=== PATIENT | male | born 1990 | race African-American/Black ===

== ENCOUNTER 2025-02-09 14:12 | Emergency (ER) | payer OTHER, BC, SELFPAY ==
[2025-02-09 14:15] VITALS: BP 122/82; PULSE 80; RESP 16; TEMP 37.2; O2SAT 100; BMI 20.9
--- NOTE | 2025-02-09 14:27 | ED.RN ---
NO ONE ON-CALL FOR CORPORATE CARE. PT INSTRUCTED TO F/U WITH CORPORATE CARE IN THE AM. DSICUSSED REQUIREMENT FOR [facility]WC CLAIM. PT VERBALIZES UNDERSTANDING
--- NOTE | 2025-02-09 16:16 | ED.VIS.BACK ---
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 He denies radiation of the pain and paresthesias. He denies bowel/bladder incontinence, saddle paresthesia/anesthesia, urinary retention, and urinary symptoms. He has had no fevers or chills. PFSH <SHEILA Milian - Last Filed: 02/09/25 17:29> PFSH Home Medications ?Medication ?Instructions ?Recorded ?Last Taken ?Type acetaminophen 325 mg tablet 650 mg (2 x 325 mg) PO Q6H PRN PRN 05/02/17 Unknown Rx (Tylenol) Mild Pain (scale 0-3)/T>100.7 cephalexin 500 mg capsule 500 mg PO Q6 ##56 05/02/17 Unknown Rx oxycodone 5 mg tablet 10 mg (2 x 5 mg) PO Q4H PRN PRN 05/02/17 Unknown Rx Severe Pain (6-10/) #18 tabs hydrocodone-acetaminophen 5-325mg 1 tab PO Q6H PRN PRN Pain 2 days 02/09/25 Unknown Rx 5mg-325mg #7 TABLETS metaxalone 800 mg tablet 800 mg PO TID PRN muscle pain 7 02/09/25 Unknown Rx days #21 tabs naproxen 500 mg tablet 500 mg PO BID #14 tabs 02/09/25 Unknown Rx Allergy/AdvReac Type Severity Reaction Status Date / Time No Known Allergies Allergy Verified 02/09/25 14:14 Social History Smoking Status: Current every day smoker ROS <SHEILA Milian - Last Filed: 02/09/25 17:29> ROS ED Constitutional Constitutional ED: Denies chills or fever(s) Cardiovascular Cardiovascular: Denies chest pain Respiratory/Chest Respiratory/Chest: Denies dyspnea Gastrointestinal Gastrointestinal: Denies abdominal pain, nausea or vomiting Genitourinary Genitourinary ED: Denies dysuria, hematuria or urinary urgency Musculoskeletal Musculoskeletal: Reports back pain Integumentary Denies rash Neurologic Neurologic: Denies paresthesias or weakness EXAM <SHEILA Milian - Last Filed: 02/09/25 17:29> Physical Exam Const Vital Signs: 02/09/25 14:15 Temperature 98.9 F Temperature Source Oral Pulse Rate 80 Respiratory Rate 16 Blood Pressure 122/82 H Blood Pressure Mean 95 Pulse Ox 100 Oxygen Delivery Method Room Air Positive well nourished, well developed and no apparent distress General Appearance ED: well developed HEENT Reports normocephalic and head/scalp atraumatic Mouth ED: Yes moist mucous membranes normal Eyes PERRL and EOMs intact bilaterally Neck full ROM and supple Chest Wall inspection of chest normal Resp normal respiratory effort and clear to auscultation bilaterally Cardio regular rate and regular rhythm GI soft to palpation, non-tender, non-distended and no masses Back/Spine normal ROM and normal to inspection Extremity normal to inspection and full ROM Neuro oriented x3, CN's II-XII intact bilaterally, moves all extremities, no focal motor deficits and no sensory deficits noted Sensorium / Orientation: awake and alert Motor Exam: strength 5/5 throughout Deep Tendon Reflexes: Rt Patellar (L4): 2+ and Lt Patellar (L4): 2+ Deep Tendon Reflexes Back: Rt Patellar (L4): 2+ and Lt Patellar (L4): 2+ Psych mental status grossly normal and thought process normal Skin no rashes or lesions noted and no wounds <Dr. Brittney Pruett DO - Last Filed: 02/09/25 16:21> Physical Exam Const Vital Signs: 02/09/25 14:15 Temperature 98.9 F Temperature Source Oral Pulse Rate 80 Respiratory Rate 16 Blood Pressure 122/82 H Blood Pressure Mean 95 Pulse Ox 100 Oxygen Delivery Method Room Air [facility] <SHEILA Milian - Last Filed: 02/09/25 17:29> [facility] Narrative Medical decision making narrative: Patient presenting today with low back pain that started this afternoon after he bent over to pick something up and felt a pop in his low back. No radicular symptoms. He has no symptoms of cauda equina syndrome, low suspicion for spinal abscess. He did not have any direct injury to his back, I do not feel that imaging is indicated at this time. I will given prescriptions for muscle relaxers and anti-inflammatories as well as a few [place] for breakthrough pain. [facility], can also follow-up with his PCP. Work restrictions were given. He will be discharged home in stable condition. I have personally performed a face to face assessment of the patient and have reviewed the ARIK Note. I performed a substantive portion of the visit including all aspects of the following. My pride findings include: History is [patient presents to the emergency department complaint of back injury while at work. Patient states that he was lifting some parts weighing about 20 pounds he just thinks the angle in which he did it caused an injury. Patient states that he immediately felt a pop in his low back and has now discomfort with movement. Denies any pain rating down his legs. He denies numbness or tingling. Typically does not have back pain issues.] Exam is [HERILEY-PERRLA, EOMI. Cranial nerves II through XII grossly intact. TMs clear. Mucous membranes moist. No adenopathy. Cardiovascular-regular rate and rhythm without murmur or ectopy Lungs-clear to auscultation, chest wall stable without crepitus or subcu emphysema Abdomen-normoactive bowel sounds, soft, nontender, no rebound or rigidity, no peritoneal signs. Back-no tenderness over the thoracic or lumbar spine. No significant tenderness over the para musculature bilaterally. He has negative straight leg raises. Deep tendon reflexes plus 2 out of 4 bilaterally at the patella and Achilles. He has normal 5 extension bilaterally. He has normal sensation to light touch bilaterally. Extremities-intact ?4, normal range of motion, normal pulses, atraumatic] Medical Decison Making [patient with lifting injury while at work. Clinically looks well. No red flag symptoms of cauda equina. I do not think he needs any imaging. Will treat with muscle relaxer as well as anti-inflammatory and some for pain. Will give work restrictions. Will refer to corporate care for follow-up.] Other additions or changes: [None] <Dr. Brittney Pruett, DO - Last Filed: 02/09/25 16:21> [facility] Narrative Medical decision making narrative: I have personally performed a face to face assessment of the patient and have reviewed the ARIK Note. I performed a substantive portion of the visit including all aspects of the following. My pride findings include: History is [patient presents to the emergency department complaint of back injury while at work. Patient states that he was lifting some parts weighing about 20 pounds he just thinks the angle in which he did it caused an injury. Patient states that he immediately felt a pop in his low back and has now discomfort with movement. Denies any pain rating down his legs. He denies numbness or tingling. Typically does not have back pain issues.] Exam is [HEENT-PERRLA, EOMI. Cranial nerves II through XII grossly intact. TMs clear. Mucous membranes moist. No adenopathy. Cardiovascular-regular rate and rhythm without murmur or ectopy Lungs-clear to auscultation, chest wall stable without crepitus or subcu emphysema Abdomen-normoactive bowel sounds, soft, nontender, no rebound or rigidity, no peritoneal signs. Back-no tenderness over the thoracic or lumbar spine. No significant tenderness over the para musculature bilaterally. He has negative straight leg raises. Deep tendon reflexes plus 2 out of 4 bilaterally at the patella and Achilles. He has normal 5 extension bilaterally. He has normal sensation to light touch bilaterally. Extremities-intact ?4, normal range of motion, normal pulses, atraumatic] Medical Decison Making [patient with lifting injury while at work. Clinically looks well. No red flag symptoms of cauda equina. I do not think he needs any imaging. Will treat with muscle relaxer as well as anti-inflammatory and some for pain. Will give work restrictions. Will refer to corporate care for follow-up.] Other additions or changes: [None] Discharge Plan Triage Chief Complaint: Back ED Midlevel Provider: Emily Burris ED Provider: Brittney Pruett Dx/Rx/DC Orders Clinical Impression: Lumbar strain Instructions: ED Back Sprain/Strain Prescriptions: New naproxen 500 mg tablet 500 mg PO BID Qty: 14 0RF metaxalone 800 mg tablet 800 mg PO TID PRN (Reason: muscle pain) 7 Days Qty: 21 0RF hydrocodone-acetaminophen 5-325 mg tablet 1 tab PO Q6H PRN PRN (Reason: Pain) 2 Days Qty: 7 0RF No Action acetaminophen [Tylenol] 325 MG tablet 650 mg PO Q6H PRN PRN (Reason: Mild Pain (scale 0-3)/T>100.7) 0RF oxycodone 5 MG tablet 10 mg PO Q4H PRN PRN (Reason: Severe Pain (-05/09)) Qty: 18 0RF cephalexin 500 MG capsule 500 mg PO Q6 Qty: 56 0RF Stand Alone Forms: Work Status Form Primary Care Provider: Alex Redd Referrals: [facility] [Provider Group] - 5-7 Days Alex Benavidez MD [Non-Staff] - 5-7 Days Activity Restrictions/Additional Instructions: Follow-up with [facility] PCP in the [facility] and return for any worsening symptoms. Print Language: Welsh Disposition Disposition: Home, Self Care
--- OUTSIDE RECORDS SUMMARY | 2025-02-09 16:55 | XMS RPT_ITS | CCD ---
Author Organization [facility] CliniSymt Care Team Providers Care Nutrient Management Specialist Name Role Phone José Antonio Cash Unavailable Unavailable Benavidez, Alex Unavailable Unavailable Benavidez, Alex Unavailable Unavailable Andreina, Stefan Unavailable Unavailable Imamura, Yoichi Unavailable Unavailable Catrina, Ja Unavailable Unavailable Asia, Obdulio Unavailable Unavailable Problems Active Problems Problem Classification Problem Date Documented Da te Episodic/Chronic Substance-related disorders (1 source) Nicotine dependence, unspecified, uncomplicated; Translations: [NICOTINE DEPENDENCE, UNSPECIFIED, UNCOMPLICATED] Onset: 05-03-2017 Chronic Past or Other Problems Problem Classification Problem Date Documented Date Episodic/Chronic Bacterial infection (1 source) Other streptococcus as the cause of diseases classified elsewhere; Translations: [OTH STREPTOCOCCUS THE CAUSE OF DISEASES CLASSD ELSWHR] Onset: 05-03-2017 Episodic Lymphadenitis (1 source) Nonspecific lymphadenitis, unspecified; Translations: [NONSPECIFIC LYMPHADENITIS, UNSPECIFIED] Onset: 05-02-2017 Episodic Other connective tissue disease (1 source) Infective myositis, other site; Translations: [INFECTIVE MYOSITIS, OTHER SITE] Onset: 05-03-2017 Episodic Skin and subcutaneous tissue infections (1 source) Cellulitis of neck; Translations: [CELLULITIS OF NECK] Onset: 05-03-2017 Episodic Results Test Name Value Interpretation Reference Range Facility Fungus Arielleon 05-17-2017 FUNST Comments: LEFT NECK ABSCESS CANCELLATION OF AFB CULTURE AND SMEAR CALLED TO TAL COOK 04/29/17 15:[address] TESTING PERFORMED AT [facility]. ORIGINAL REPORT ON FILE IN LAB CONTAINS ADDITIONAL TEST SITE INFORMATION. _ Fungus Stain No yeast or mold observed. Normal [facility] Comment on above: Performed By: #### L 100.0500 ####[facility] [address] [place], [address] Culture, Blood (WB)on 2016 CUB Has pt arrived? Y BC No growth in 5 days. Normal [facility] Comment on above: Performed By: #### L 100.0500 ####[facility] [address] [place], [address] Culture, Deep Woundon 2016 CUDW This specimen has be en REJECTED due to Laboratory criteria: Wrong Tube/Container. UNABLE TO PERFORM AFB ON SWAB SPECIMEN Comments: LEFT NECK ABSCESSGram StainGram Stain 3+ Red Blood Cells 2+ White Blood Cells Rare Gram positive cocci Wound CultureRESULTS CALLED TO FANNIE 05/02/17 0752 Viridiana Dey. Copy of report sent to Infection Control Printer [id number] 05/02/17 6422 DCANNON. ORGANISM 1: Streptococcus pyogenesAmount Growth Rare Cult, AnaerobicNo anaerobic bacteria isolated. Normal [facility] Comment on above: Performed By: #### L 100.0500 ####[facility] [address] [place], [address] Discharge Instructionon 100 Discharge Instruction [facility]Medical Records [address] [facility] [place], [place] [address]Ntyrftbuseph for Home/Discharge Udjnvvoihngl42/03/17 1134MR#: [id number] Acct: [id number]: LANCE TOMLINSON Rep #: [id number]: 1990 27 From: Ja Fritz DOPCP: Alex Benavidez MD Status: ADM IN- Discharge DiagnosesCurrent Active Problems:Current Active and Chronic ProblemsCellulitis of neck (Acute)You will use the following diet at home:: No restrictionsYour food should be the consistency of: RegularYour liquids should be the consistency of: Regular/ThinDischarge Activity: Return to Normal ActivityReturn to work on:: 05/08/17Call your doctor if your incision/area has: Continuous Slow Oozing, Increased Pain/ Swelling,Increased RednessCall your doctor if you observe: Fever of 101 or Higher, Shortness of breathAllergies/Adverse Reactions:AllergiesNo Known Allergies Allergy (Verified 04/27/17 09:23)Medications to take at DischargeAcetaminophen [Tylenol Tablet] 650 mg PO Q6H PRN PRN tablet 05/02/17Cephalexin [Keflex] 500 mg PO Q6 #56 capsule 05/02/17Oxycodone [Oxyir] 10 mg PO Q4H PRN PRN #18 tablet 05/02/17The following prescriptions were given:Oxycodone [Oxyir] 10 mg PO Q4H PRN PRN #18 tabletPRN Reason: Severe Pain ()Cephalexin [Keflex] 500 mg PO Q6 #56 capsulePrimary Care Physician:Alex Benavidez MD [Primary Care Provider] - Within 2 WeeksPlease Follow Up With: Denilson Patterson - call for appt [phone]: roposed Discharge Date: 05/02/17101135 Date Ja Fritz DOCC: Stefan Hdz MD; Alex Benavidez MD; Obdulio Betancourt M.D. Normal [facility] Discharge Summaryon 05-02-20 Discharge Summary [facility]Medical Records [address] [place], [place] [address]Osdcxspxl Ozjzeuy06/03/17 1136MR#: [id number] Acct: [id number]: LANCE TOMLINSON Rep #: [id number]: 1990 27 From: Ja Fritz DOPCP: Alex Benavidez MD Status: ADM IN YLocation: MS3 [id number] Date and Diagnosis- Problem ListPatient Problems:Active and Suspected ProblemsCellulitis of neck (Acute)Neck abscess (Acute)Date of Admission: 04/27/17Date of Discharge: 05/02/17- Primary Discharge DiagnosisActive and Suspected ProblemsCellulitis of neck (Acute)Neck abscess (Acute)- Secondary Discharge DiagnosisChronic ProblemsTobacco use (Chronic)Hospital Course and TreatmentImaging Results:Clinical Impression(s) from Imaging StudiesSoft Tissue Neck CT 04/27/17 09:43IMPRESSION:Diffuse enlargement of the left sternocleidomastoid muscle with findingssuggestive of an abscess deep to the left sternocleidomastoid muscle withsurrounding inflammatory response and compression of the left internaljugular vein. No thrombus is seen within the internal jugular vein.Electronically Signed:Jorge Hussein MD at 10:58 TT [phone], Service support , Euvtnjivrn: NoneProcedures: NoneSummary of Care Provided:The patient is a 27 year old Erin Hannon with a one-week history of neck pain. Patient been seenseveral days before thought to have cervical lymphadenitis and received clindamycin. Patientwas taken antibiotics going to get worse. Patient had a CAT scan that showed a abscess at thesternocleidomastoid muscle on the left. ENT, with Dr. Meyer was consulted. Patientunderwent vision and drainage on the by Dr. Meyer. Culture grew out Streptococcuspyogenes. Infectious disease was consulted. Patient has been on physical and and has beenimproving. She still does have a [place] drain in his neck but is gradually improving.Patient will follow up Dr. Meyer on the for further management. Patient will continuewith Ancef 500 mg 4 times daily for 2 weeks.On physical exam. Patient is nontoxic. Afebrile. Neck is still with induration and swellingat the incision site on the left. Patient does have improved active motion of his neck. []Discharge Diet: No RestrictionsDischarge Activity: Return to Normal ActivityReturn to work on:: 05/08/17Call your doctor if your incision/area has: Continuous Slow Oozing, Increased Pain/ Swelling,Increased RednessCall your doctor if you observe: Fever of 101 or Higher, Shortness of breathHome Medications:Medications to take at DischargeAcetaminophen [Tylenol Tablet] 650 mg PO Q6H PRN PRN tablet 05/02/17Cephalexin [Keflex] 500 mg PO Q6 #56 capsule 05/02/17Oxycodone [Oxyir] 10 mg PO Q4H PRN PRN #18 tablet 05/02/17Following Prescrptions Were Given to Patient:Oxycodone [Oxyir] 10 mg PO Q4H PRN PRN #18 tabletPRN Reason: Severe Pain (-05/09)Cephalexin [Keflex] 500 mg PO Q6 #56 capsulePrimary Care Physician:Alex Benavidez MD [Primary Care Provider] - Within 2 WeeksPlease Follow Up With: Denilson Patterson - call for appt [phone]: isposition: HomeMinutes spent on discharge:: 27Patient Condition:: GoodMeaningful Use InfoMeaningful Use Diagnoses (Choose all that apply): None xutikbmxup44/03/17 1139 Date Ja Fritz DOCosigner Signature (if applicable): Date CC: Ja Fritz DO; Alex Benavidez MD Signed Normal [facility] Basic Metabolic Profile (BMP )on 05-01-2017 BUN (urea nitrogen) 7.3 RATIO Low 10-20 [facility] Comment on above: Performed By: #### L 500.2500 ####[facility] [address] [place], [address] Calcium 8.6 mg/dL Normal 8.5-10.1 [facility] Comment on above: Performed By: #### L 500.2500 ####[facility] [address] [place], [address] Chloride 107 mmol/L Normal 98-107 [facility] Comment on above: Performed By: #### L 500.2500 ####[facility] [address] [place], [address] CO2 28.0 mmol/L Normal 21.0-32.0 [facility] Comment on above: Performed By: #### L 500.2500 ####[facility] [address] [place], [address] Creatinine 0.83 mg/dL Normal 0.70-1.30 [facility] Comment on above: Result Comment: The validity of the calculated GFR AND GFRAA in patients over70 years has not been determined. Clinical correlation isessential. Performed By: #### L 500.2500 ####[facility] [address] [place], [address] eGFR (non-black) 142 mL/min/{1.73_m2} Normal >60 [facility] Comment on above: Result Comment: Afri can Kittitian GFR Calc Performed By: #### L 500.2500 ####[facility] [address] [place], [address] eGFR (non-black) 118 mL/min/{1.73_m2} Normal >60 [facility] Comment on above: Result Comment: Non- GFR Calc Performed By: #### L 500.2500 ####[facility] [address] [place], [address] Estimated CRCL 134.94 ml/min Normal [facility] Comment on above: Performed By: #### L 500.2500 ####[facility] [address] [place], [address] GAP 7 Normal 5-15 [facility] Comment on above: Performed By: #### L 500.2500 ####[facility] [address] [place], [address] Glucose mass conc 77 mg/dL Normal 70-110 [facility] Comment on above: Performed By: #### L 500.2500 ####[facility] [address] [place], [address] Potassium molar conc 3.8 mmol/L Normal 3.5-5.1 [facility] Comment on above: Performed By: #### L 500.2500 ####[facility] [address] [place], [address] Sodium 142 mmol/L Normal 136-145 [facility] Comment on above: Performed By: #### L 500.2500 ####[facility] [address] [place], [address] Urea nitrogen 6 mg/dL Low 7-18 [facility] Comment on above: Performed By: #### L 500.2500 ####[facility] [address] [place], [address] CBC-Complete Blood Cnt No Di ffon 05-01-2017 Erythrocyte distribution width Auto Ratio (RBC) 12.2 % Normal 11.6-14.6 [facility] Comment on above: Performed By: #### L 500.2500 ####[facility] [address] [place], [address] Erythrocytes (RBC) 4.19 M/mm3 Low 4.6-6.2 [facility] Comment on above: Performed By: #### L 500.2500 ####[facility] [address] [place], [address] Hematocrit (HCT) 38.9 % Low 40-54 [facility] Comment on above: Performed By: #### L 500.2500 ####[facility] [address] [place], [address] Hemoglobin mass conc (Bld) 12.8 g/dL Low 13.0-16.5 [facility] Comment on above: Performed By: #### L 500.2500 ####[facility] [address] [place], [address] MCH 30.5 pg Normal 27.0-32.0 [facility] Comment on above: Performed By: #### L 500.2500 ####[facility] [address] [place], [address] MCHC mass conc (RBC) 32.9 g/gl Normal 32-36 [facility] Comment on above: Performed By: #### L 500.2500 ####[facility] [address] [place], [address] MCV 92.8 fL Normal 80-94 [facility] Comment on above: Performed By: #### L 500.2500 ####[facility] [address] [place], [address] Platelet mean volume (PMV) 9.5 fL Normal 6.2-12.0 [facility] Comment on above: Performed By: #### L 500.2500 ####[facility] [address] [place], [address] Platelets 509 10*3/uL High 150-450 [facility] Comment on above: Performed By: #### L 500.2500 ####[facility] [address] [place], [address] RDW SD 40.4 fl Normal 35.1-43.9 [facility] Comment on above: Performed By: #### L 500.2500 ####[facility] [address] [place], [address] WBC (Leukocytes) 6.5 10*3/uL Normal 4.4-11.0 [facility] Comment on above: Performed By: #### L 500.2500 ####[facility] [address] [place], [address] Basic Metabolic Profile (BMP )on 04-30-2017 BUN (urea nitrogen) 8.4 RATIO Low 10-20 [facility] Comment on above: Performed By: #### L 100.0500 ####[facility] [address] [place], [address] Calcium 8.8 mg/dL Normal 8.5-10.1 [facility] Comment on above: Performed By: #### L 100.0500 ####[facility] [address] [place], [address] Chloride 107 mmol/L Normal 98-107 [facility] Comment on above: Performed By: #### L 100.0500 ####[facility] [address] [place], [address] CO2 25.0 mmol/L Normal 21.0-32.0 [facility] Comment on above: Performed By: #### L 100.0500 ####[facility] [address] [place], [address] Creatinine 0.71 mg/dL Normal 0.70-1.30 [facility] Comment on above: Result Comment: The validity of the calculated GFR AND GFRAA in patients over70 years has not been determined. Clinical correlation isessential. Performed By: #### L 100.0500 ####[facility] [address] [place], [address] eGFR (non-black) 140 mL/min/{1.73_m2} Normal >60 [facility] Comment on above: Result Comment: Non- GFR Calc Performed By: #### L 100.0500 ####[facility] [address] [place], [address] eGFR (non-black) 169 mL/min/{1.73_m2} Normal >60 [facility] Comment on above: Result Comment: Afri can [place] GFR Calc Performed By: #### L 100.0500 ####[facility] [address] [place], [address] Estimated CRCL 157.75 ml/min Normal [facility] Comment on above: Performed By: #### L 100.0500 ####[facility] [address] [place], [address] GAP 7 Normal 5-15 [facility] Comment on above: Performed By: #### L 100.0500 ####[facility] [address] [place], [address] Glucose mass conc 73 mg/dL Normal 70-110 [facility] Comment on above: Performed By: #### L 100.0500 ####[facility] [address] [place], [address] Potassium molar conc 3.7 mmol/L Normal 3.5-5.1 [facility] Comment on above: Performed By: #### L 100.0500 ####[facility] [address] [place], [address] Sodium 139 mmol/L Normal 136-145 [facility] Comment on above: Performed By: #### L 100.0500 ####[facility] [address] [place], [address] Urea nitrogen 6 mg/dL Low 7-18 [facility] Comment on above: Performed By: #### L 100.0500 ####[facility] [address] [place], [address] CBC-Complete Blood Cnt No Di ffon 04-30-2017 Erythrocytes (RBC) 4.24 M/mm3 Low 4.6-6.2 [facility] Comment on above: Performed By: #### L 100.0500 ####[facility] [address] [place], [address] Hematocrit (HCT) 39.5 % Low 40-54 [facility] Comment on above: Performed By: #### L 100.0500 ####[facility] [address] [place], [address] Hemoglobin mass conc (Bld) 12.8 g/dL Low 13.0-16.5 [facility] Comment on above: Performed By: #### L 100.0500 ####[facility] [address] [place], [address] Erythrocyte distribution width Auto Ratio (RBC) 12.4 % Normal 11.6-14.6 [facility] Comment on above: Performed By: #### L 100.0500 ####[facility] [address] [place], [address] MCH 30.2 pg Normal 27.0-32.0 [facility] Comment on above: Performed By: #### L 100.0500 ####[facility] [address] [place], [address] MCHC mass conc (RBC) 32.4 g/gl Normal 32-36 [facility] Comment on above: Performed By: #### L 100.0500 ####[facility] [address] [place], [address] MCV 93.2 fL Normal 80-94 [facility] Comment on above: Performed By: #### L 100.0500 ####[facility] [address] [place], [address] Platelet mean volume (PMV) 9.3 fL Normal 6.2-12.0 [facility] Comment on above: Performed By: #### L 100.0500 ####[facility] [address] [place], [address] Platelets 448 10*3/uL Normal 150-450 [facility] Comment on above: Performed By: #### L 100.0500 ####[facility] [address] [place], [address] RDW SD 41.6 fl Normal 35.1-43.9 [facility] Comment on above: Performed By: #### L 100.0500 ####[facility] [address] [place], [address] WBC (Leukocytes) 10.7 10*3/uL Normal 4.4-11.0 [facility] Comment on above: Performed By: #### L 100.0500 ####[facility] [address] [place], [address] Acid Fast Bact Cult/Smon AFBCS Comments: LEFT NECK ABSCESS CANCELLATION OF AFB CULTURE AND SMEAR CALLED TO TAL Turner 04/29/17 15:00 DGRADY AFB Smear/Fluor Test not performed AFB Cult Test not performed Normal [facility] Comment on above: Performed By: #### L 100.0500 ####[facility] [address] [place], [address] Basic Metabolic Profile (BMP )on 04-29-2017 BUN (urea nitrogen) 7.1 RATIO Low 10-20 [facility] Comment on above: Performed By: #### L 100.0500 ####[facility] [address] [place], [address] Calcium 8.4 mg/dL Low 8.5-10.1 [facility] Comment on above: Performed By: #### L 100.0500 ####[facility] [address] [place], [address] Chloride 105 mmol/L Normal 98-107 [facility] Comment on above: Performed By: #### L 100.0500 ####[facility] [address] [place], [address] CO2 26.0 mmol/L Normal 21.0-32.0 [facility] Comment on above: Performed By: #### L 100.0500 ####[facility] [address] [place], [address] Creatinine 0.85 mg/dL Normal 0.70-1.30 [facility] Comment on above: Result Comment: The validity of the calculated GFR AND GFRAA in patients over70 years has not been determined. Clinical correlation isessential. Performed By: #### L 100.0500 ####[facility] [address] [place], [address] eGFR (non-black) 138 mL/min/{1.73_m2} Normal >60 [facility] Comment on above: Result Comment: Afri can [place] GFR Calc Performed By: #### L 100.0500 ####[facility] [address] [place], [address] eGFR (non-black) 114 mL/min/{1.73_m2} Normal >60 [facility] Comment on above: Result Comment: Non- GFR Calc Performed By: #### L 100.0500 ####[facility] [address] [place], [address] Estimated CRCL 131.76 ml/min Normal [facility] Comment on above: Performed By: #### L 100.0500 ####[facility] [address] [place], [address] GAP 7 Normal 5-15 [facility] Comment on above: Performed By: #### L 100.0500 ####[facility] [address] [place], [address] Glucose mass conc 77 mg/dL Normal 70-110 [facility] Comment on above: Performed By: #### L 100.0500 ####[facility] [address] [place], [address] Potassium molar conc 3.9 mmol/L Normal 3.5-5.1 [facility] Comment on above: Performed By: #### L 100.0500 ####[facility] [address] [place], [address] Sodium 138 mmol/L Normal 136-145 [facility] Comment on above: Performed By: #### L 100.0500 ####[facility] [address] [place], [address] Urea nitrogen 6 mg/dL Low 7-18 [facility] Comment on above: Performed By: #### L 100.0500 ####[facility] [address] [place], [address] CBC-Complete Blood Cnt No Di ffon 04-29-2017 Erythrocyte distribution width Auto Ratio (RBC) 12.4 % Normal 11.6-14.6 [facility] Comment on above: Performed By: #### L 100.0500 ####[facility] [address] [place], [address] Erythrocytes (RBC) 4.21 M/mm3 Low 4.6-6.2 [facility] Comment on above: Performed By: #### L 100.0500 ####[facility] [address] [place], [address] Hematocrit (HCT) 39.2 % Low 40-54 [facility] Comment on above: Performed By: #### L 100.0500 ####[facility] [address] [place], [address] Hemoglobin mass conc (Bld) 12.8 g/dL Low 13.0-16.5 [facility] Comment on above: Performed By: #### L 100.0500 ####[facility] [address] [place], [address] MCH 30.4 pg Normal 27.0-32.0 [facility] Comment on above: Performed By: #### L 100.0500 ####[facility] [address] [place], [address] MCHC mass conc (RBC) 32.7 g/gl Normal 32-36 [facility] Comment on above: Performed By: #### L 100.0500 ####[facility] [address] [place], [address] MCV 93.1 fL Normal 80-94 [facility] Comment on above: Performed By: #### L 100.0500 ####[facility] [address] [place], [address] Platelet mean volume (PMV) 8.8 fL Normal 6.2-12.0 [facility] Comment on above: Performed By: #### L 100.0500 ####[facility] [address] [place], [address] Platelets 452 10*3/uL High 150-450 [facility] Comment on above: Performed By: #### L 100.0500 ####[facility] [address] [place], [address] RDW SD 41.9 fl Normal 35.1-43.9 [facility] Comment on above: Performed By: #### L 100.0500 ####[facility] [address] [place], [address] WBC (Leukocytes) 7.6 10*3/uL Normal 4.4-11.0 [facility] Comment on above: Performed By: #### L 100.0500 ####[facility] [address] [place], [address] Consultationon 04-29-2017 Consultation [facility] [address] [place] [address]Emcvbxhkliyb73/29/17 1614MR#: [id number] Acct: [id number]: LANCE TOMLINSON Rep #: [id number]: 1990 27 From: Denilson Patterson MDPCP: Alex Benavidez MD Status: ADM IN YLocation: MS3 [id number] List(1) Cellulitis of neckStatus: AcuteReason for ConsultDate of Consultation: 04/28/17History of Present Illness:The patient is a 27 year old M with left neck abscess. noted progressive left neckpain/stiffness starting 2 weeks ago. he presented to the ED last monday, was given clinda,and failed to improve. he re-presented yesterday, a neck CT demonstrated a small left neckabscess with reactive lymphadenopathy. WBC normal, afebrile.Past Medical HistoryPast Medical History (Chronic Problems):Chronic ProblemsTobacco use (Chronic)AllergiesNo Known Allergies Allergy (Verified 04/27/17 09:23)Home Medications:Ambulatory OrdersMedication Instructions RecordedClindamycin [Cleocin] 300 mg PO 4X/DAY #80 capsule 04/22/17Surgical History: no surgical historySmoking Status: Current every day smokerAlcohol: Rare, OccasionalDrugs: None- *Family History MaternalHistory Items: Seizures PaternalHistory Items: Diabetes, Heart Disease, Hypertension.Review of SystemsConstitutional: Denies: Chills, Fever, Weight ChangeHEENT: Reports: - - as per HPI. Denies: Head Aches, Sinus Congestion, Sinus DrainageRespiratory: Denies: Cough, Shortness of breath at rest, Sputum productionGastrointestinal: Denies: Abdominal Pain, Nausea, VomitingPatient Problems:Active and Suspected ProblemsCellulitis of neck (Acute)Subjective:x- Physical ExamGeneral: Alert, Oriented x3, CooperativeOral: Moist Mucosa, No Gingival or Mucosal Lesions/ UlcerationsNeck: - - induration of left neck from anterior SCM posteriorly to level 5. tender.Vital SignsTemp Pulse Resp BP Pulse Ox98.4 F 65 16 121/66 38360 13:43 04/28/17 13:43 04/28/17 13:43 04/28/17 13:43 04/28/17 13:43Oxygen Delivery Method Room AirWeight: 72 kgBody Mass Index (BMI) 22.7Intake and Output for Last 24 HoursIntake Total 756 3839Balance 756 3839Laboratory Tests Past 24 HrsWBC 8.3RBC 4.29 LHgb 12.8 LAssessment/PlanActive and Suspected ProblemsCellulitis of neck (Acute)27 year old male with left neck collection-would consider atypical infection / scenario as he appears well, long duration of symptoms, heis afebrile and he has a normal white count. he is HIV negative as far as i know.-given the failure of medical management - the plan is to continue IV antibiotics overnight.if there is no improvement by tomorrow AM, i will plan to take him to the OR forincision/drainage and culture dlxzviegaaz55/30/17 1059 Date Denilson Patterson [facility] Signature (if applicable): Date CC: Stefan Hdz MD; Alex Benavidez MD; Obdulio Betancourt M.D. Signed Normal [facility] Operative Reporton 7 Operative Report [facility]Medical Records [address] [place] [place], [place] [address]Gkcpdescv Ngfjcw76/30/17 1100MR#: [id number] Acct: [id number]: LANCE TOMLINSON Rep #: [id number]: 1990 27 From: Denilson Patterson MDPCP: Alex Benavidez MD Status: ADM IN YLocation: MS3 [id number] List(1) Cellulitis of neckStatus: AcuteReport of OperationDate of Procedure: 04/29/17Pre-Operative Diagnosis: left deep neck space abscessPost-Operative Diagnosis: left deep neck space abscessSurgery/Procedure Performed:: incision/drainage deep neck space infectionType of Anesthesia:: GeneralDrains: penroseEstimated Blood Loss (mL): 5ccDescription of Procedure:on the day of the procedure, after appropriate informed consent was obtained, the patient wasbrought to the operating room and placed in supine position on the operating table. he wasplaced under general endotracheal anesthesia by the anesthesiologist, the tube was secured andeyes were taped. the neck was injected with lidocaine/epinephrine and prepped and draped insterile fashion. a 4cm transverse incision was made mid-neck with a #15 blade. the platysmawas divided and superior and inferior subplatysmal flaps were raised. the anterior border ofthe sternocleidomastoid muscle was found and dissection was performed deep and medial to this.the carotid artery and thus sheath was palpated and preserved. blunt dissection deep andlateral to the sheath returned immediate pus. cultures were taken, loculations were broken up.hemostasis was observed. the area was irrigated with copious saline.girma drains were placed medial to the sternocleidomastoid in the deep neck and sutured intoplace. the platysma was closed with 4-0 vicryl, and the skin was closed with 4-0 vicryl and5-0 prolene.the patient was awoken from anesthesia and transferred to the PACU in stable condition.Grafts/Implants Used: none- Complicationsnone- Admit VTE DocumentationVTE Present on Admission: NoVTE Mechan Device Prophylaxis: SCD'sVTE Pharm Prophylaxis ordered?: 04/29/17 1203 Date Denilson Patterson [facility]: Stefan Hdz MD; Duncan Patterson MD; Alex Benavidez MD; Obdulio Betancourt M.D. Signed Normal [facility] Basic Metabolic Profile (BMP )on 04-28-2017 BUN (urea nitrogen) 10.1 RATIO Normal 10-20 [facility] Comment on above: Performed By: #### L 500.2500 ####[facility] [address] [facility] Hospital[facility] [place], [place], [address] Calcium 8.5 mg/dL Normal 8.5-10.1 [facility] Comment on above: Performed By: #### L 500.2500 ####[facility] [address] [place], [address] Chloride 106 mmol/L Normal 98-107 [facility] Comment on above: Performed By: #### L 500.2500 ####[facility] [address] [place], [address] CO2 24.0 mmol/L Normal 21.0-32.0 [facility] Comment on above: Performed By: #### L 500.2500 ####[facility] [address] [place], [address] Creatinine 0.89 mg/dL Normal 0.70-1.30 [facility] Comment on above: Result Comment: The validity of the calculated GFR AND GFRAA in patients over70 years has not been determined. Clinical correlation isessential. Performed By: #### L 500.2500 ####[facility] [address] [place], [address] eGFR (non-black) 108 mL/min/{1.73_m2} Normal >60 [facility] Comment on above: Result Comment: Non- GFR Calc Performed By: #### L 500.2500 ####[facility] [address] [place], [address] eGFR (non-black) 131 mL/min/{1.73_m2} Normal >60 [facility] Comment on above: Result Comment: Afri can Kitt[place] GFR Calc Performed By: #### L 500.2500 ####[facility] [address] [place], [address] Estimated CRCL 125.84 ml/min Normal [facility] Comment on above: Performed By: #### L 500.2500 ####[facility] [address] [place], [address] GAP 9 Normal 5-15 [facility] Comment on above: Performed By: #### L 500.2500 ####[facility] [address] [place], [address] Glucose mass conc 85 mg/dL Normal 70-110 [facility] Comment on above: Performed By: #### L 500.2500 ####[facility] [address] [place], [address] Potassium molar conc 3.9 mmol/L Normal 3.5-5.1 [facility] Comment on above: Performed By: #### L 500.2500 ####[facility] [address] [place], [address] Sodium 139 mmol/L Normal 136-145 [facility] Comment on above: Performed By: #### L 500.2500 ####[facility] [address] [place], [address] Urea nitrogen 9 mg/dL Normal 7-18 [facility] Comment on above: Performed By: #### L 500.2500 ####[facility] [address] [place], [address] CBC-Complete Blood Cnt No Di ffon 04-28-2017 Erythrocyte distribution width Auto Ratio (RBC) 12.5 % Normal 11.6-14.6 [facility] Comment on above: Performed By: #### L 100.0500 ####[facility] [address] [place], [address] Erythrocytes (RBC) 4.29 M/mm3 Low 4.6-6.2 [facility] Comment on above: Performed By: #### L 100.0500 ####[facility] [address] [place], [address] Hematocrit (HCT) 40.3 % Normal 40-54 [facility] Comment on above: Performed By: #### L 100.0500 ####[facility] [address] [place], [address] Hemoglobin mass conc (Bld) 12.8 g/dL Low 13.0-16.5 [facility] Comment on above: Performed By: #### L 100.0500 ####[facility] [address] [place], [address] MCH 29.8 pg Normal 27.0-32.0 [facility] Comment on above: Performed By: #### L 100.0500 ####[facility] [address] [place], [address] MCHC mass conc (RBC) 31.8 g/gl Low 32-36 [facility] Comment on above: Performed By: #### L 100.0500 ####[facility] [address] [place], [address] MCV 93.9 fL Normal 80-94 [facility] Comment on above: Performed By: #### L 100.0500 ####[facility] [address] [place], [address] Platelet mean volume (PMV) 8.9 fL Normal 6.2-12.0 [facility] Comment on above: Performed By: #### L 100.0500 ####[facility] [address] [place], [address] Platelets 434 10*3/uL Normal 150-450 [facility] Comment on above: Performed By: #### L 100.0500 ####[facility] [address] [place], [address] RDW SD 42.6 fl Normal 35.1-43.9 [facility] Comment on above: Performed By: #### L 100.0500 ####[facility] [address] [place], [address] WBC (Leukocytes) 8.3 10*3/uL Normal 4.4-11.0 [facility] Comment on above: Performed By: #### L 100.0500 ####[facility] [address] [place], [address] Consultationon 04-28-2017 Consultation [facility] [address] [place], [place] [address]Rpirablcuyur13/29/17 1103#: [id number] Acct: [id number]: LANCE TOMLINSON Rep #: [id number]: 1990 27 From: Obdulio Betancourt MDPCP: Alex Benavidez MD Status: ADM IN YLocation: MS3 [id number] for Consult: Left neck soft tissue infectionHistory of Present Illness:The patient is a 27 year old M []This is a 27-year-old -Kitt[place] male otherwise healthy who presents with left neckswelling and pain over the past 2 weeks. No real fevers or chills. Denies any trauma to hisleft neck. He initially noted some discomfort roughly 2 weeks ago and then noticed swellingover the past week. He did go to the emergency department last weekend on Monday and wasgiven oral clindamycin and Naprosyn. Patient continued having progressive swelling of the neckand discomfort in the neck that prompted a reevaluation yesterday. He did undergo CT scan ofthe neck that showed phlegmon/abscess. Patient was placed on parenteral clindamycin uponadmission. No cardiopulmonary distress no gastrointestinal symptoms he has been otherwisehealthy with no systemic complaints. I did review the report of the CT scan of the neck.Patient denies any recent history of dental problems.- Medical HistoryPast Medical History (Chronic Problems):Chronic ProblemsTobacco use (Chronic)Allergies/Adverse Reactions:AllergiesNo Known Allergies Allergy (Verified 04/27/17 09:23)Home Medications:Ambulatory OrdersMedication Instructions RecordedClindamycin [Cleocin] 300 mg PO 4X/DAY #80 capsule 04/22/17Vital SignsTemp Pulse Resp BP Pulse Ox97.0 F 64 18 121/67 07:46 04/28/17 07:46 04/28/17 07:46 04/28/17 07:46 04/28/17 07:46Oxygen Delivery Method Room AirWeight: 72 kgBody Mass Index (BMI) 22.7Laboratory Tests Past 24 HrsWBC 8.3RBC 4.29 LHgb 12.8 L- Other StudiesRadiology: []Other Studies: []Route of nutrition/ use of supplements: []Nutritional Intake: []IV Site: []Tang Catheter: []Alert does not appear toxic oral mucosa appears normal right neck looks normal left neck thereis focal tenderness and swelling no crepitus no significant erythema. Lungs are clear heartexam S1-S2 no murmurs appreciated abdomen soft nontender. CT scan noted. CBC white countwithin normal limits chemistry profile is unremarkable- Assessment/PlanAntibiotics: []Assessment/Plan: []Active and Suspected ProblemsCellulitis of neck (Acute)Left neck soft tissue swelling with concern of deep infection at this point we will continueempiric clindamycin. ENT is consulted. We will follow his clinical course on currentantimicrobial therapy.04/28/17 1108 Date Obdulio Betancourt [facility] Signature (if applicable): Date CC: Stefan Hdz MD; Alex Benavidez MD; Obdulio Betancourt M.D. Signed Normal [facility] Basic Metabolic Profile (BMP )on 04-27-2017 BUN (urea nitrogen) 6.1 RATIO Low 10-20 [facility] Comment on above: Performed By: #### L 500.2500 ####[facility] [address] [place], [address] Calcium 9.5 mg/dL Normal 8.5-10.1 [facility] Comment on above: Performed By: #### L 500.2500 ####[facility] [address] [facility] [address] Chloride 104 mmol/L Normal 98-107 [facility] Comment on above: Performed By: #### L 500.2500 ####[facility] [address] [facility] [address] CO2 28.0 mmol/L Normal 21.0-32.0 [facility] Comment on above: Performed By: #### L 500.2500 ####[facility] [address] [place], [address] Creatinine 0.98 mg/dL Normal 0.70-1.30 [facility] Comment on above: Result Comment: The validity of the calculated GFR AND GFRAA in patients over70 years has not been determined. Clinical correlation isessential. Performed By: #### L 500.2500 ####[facility] [address] [place], [address] eGFR (non-black) 97 mL/min/{1.73_m2} Normal >60 [facility] Comment on above: Result Comment: Non- GFR Calc Performed By: #### L 500.2500 ####[facility] [address] [place], [address] eGFR (non-black) 117 mL/min/{1.73_m2} Normal >60 [facility] Comment on above: Result Comment: Afri can [place] GFR Calc Performed By: #### L 500.2500 ####[facility] [address] [place], [address] Estimated CRCL 114.29 ml/min Normal [facility] Comment on above: Performed By: #### L 500.2500 ####[facility] [address] [place], [address] GAP 7 Normal 5-15 [facility] Comment on above: Performed By: #### L 500.2500 ####[facility] [address] [place], [address] Glucose mass conc 81 mg/dL Normal 70-110 [facility] Comment on above: Performed By: #### L 500.2500 ####[facility] [address] [place], [address] Potassium molar conc 4.1 mmol/L Normal 3.5-5.1 [facility] Comment on above: Performed By: #### L 500.2500 ####[facility] [address] [place], [address] Sodium 139 mmol/L Normal 136-145 [facility] Comment on above: Performed By: #### L 500.2500 ####[facility] [address] [place], [address] Urea nitrogen 6 mg/dL Low 7-18 [facility] Comment on above: Performed By: #### L 500.2500 ####[facility] [address] [place], [address] CBC-Complete Blood Cnt No Di ffon 04-27-2017 Erythrocyte distribution width Auto Ratio (RBC) 12.4 % Normal 11.6-14.6 [facility] Comment on above: Performed By: #### L 100.0500 ####[facility] [address] [place], [address] Erythrocytes (RBC) 4.58 M/mm3 Low 4.6-6.2 [facility] Comment on above: Performed By: #### L 100.0500 ####[facility] [address] [place], [address] Hematocrit (HCT) 42.5 % Normal 40-54 [facility] Comment on above: Performed By: #### L 100.0500 ####[facility] [address] [place], [address] Hemoglobin mass conc (Bld) 14.4 g/dL Normal 13.0-16.5 [facility] Comment on above: Performed By: #### L 100.0500 ####[facility] [address] [place], [address] MCH 31.4 pg Normal 27.0-32.0 [facility] Comment on above: Performed By: #### L 100.0500 ####[facility] [address] [place], [address] MCHC mass conc (RBC) 33.9 g/gl Normal 32-36 [facility] Comment on above: Performed By: #### L 100.0500 ####[facility] [address] [place], [address] MCV 92.8 fL Normal 80-94 [facility] Comment on above: Performed By: #### L 100.0500 ####[facility] [address] [place], [address] Platelet mean volume (PMV) 8.5 fL Normal 6.2-12.0 [facility] Comment on above: Performed By: #### L 100.0500 ####[facility] [address] [place], [address] Platelets 416 10*3/uL Normal 150-450 [facility] Comment on above: Performed By: #### L 100.0500 ####[facility] [address] [place], [address] RDW SD 41.6 fl Normal 35.1-43.9 [facility] Comment on above: Performed By: #### L 100.0500 ####[facility] [address] [place], [address] WBC (Leukocytes) 10.3 10*3/uL Normal 4.4-11.0 [facility] Comment on above: Performed By: #### L 100.0500 ####[facility] [address] [place], [address] Emergency Department Summary on 04-27-2017 Emergency Department Summary [facility] [address] [place] [address]Rdyrpkzzo Department Lfwsocp05/28/17 1133MR#: [id number] Acct: [id number]: LANCE TOMLINSON Rep #: [id number]: 1990 From: Tavon Schaeffer MDPCP: Alex Benavidez MD Status: REG ER- ER Visit SummaryDate of Service: 04/27/17Chi Complaint: Patient seen on Monday and diagnosed with cervical adenitis. He was placedon of antibiotics. He saw his PCP who sent him to the ER for presumed anterior left neckabscessHistory of Present Illness: The patient is a 27 M who was seen on Monday. He was placed onantibiotics. States is compliant. He went to his PCP because of increased pain and swelling.He denies trouble with speech or swallowing. He denies his dramatic fever, murmur, SBE, IVdrug use or be immune suppressed. He denies any fever, chills or weight loss. He does reportsweats. He denies any ocular, visual or auditory symptoms. He denies any chest pain orshortness of breath. He denies any paresthesia, anesthesia or motor weakness.Physical Examination: Vital signs remarkable for elevated blood pressure 145/80. He isafebrile. TMs are normal. Patient has a 4 x 4.5 cm left anterior palpable firm nonmobiletender mass. There is slight discoloration of the skin over the mass. There is alsotenderness over the clavicle and sternoclavicular joint. Trachea is midline. He has nostridor. Heart is regular with a normal S1 and S2. There is no murmur, gallop or rub. Lungsare clear to auscultation with good movement of air bilaterally. There is no egophony. Breathsounds are symmetric. He is alert and oriented 3.Test Results: CBC and BMP are unremarkable. CT of the neck was obtained and interpreted byradiologist as an abscess. Case was discussed with Dr. Stefan Hdz. He believes thisrepresents a phlegmon and recommends IV antibiotics. The hospitalist was paged for admissionfor IV antibioticsEmergency Department Course and Treatment: Records from Monday were reviewed. CBC, BMP andCT of the neck was obtained to further evaluate this neck mass.Treatment Plan: Rocephin 2 g IV piggybackDisposition: Admission to hospital for continued observation and careImpression: Left anterior neck abscess (phlegmon)ED Disposition- Plan for ED Patient:Chief Complaint: AbscessReferrals:Alex Benavidez MD [Primary Care Provider] -What to do if you have ProblemsFor any increased pain, shortness of breath, bleeding, nausea or vomiting, chest pain, or anyunexpected problems, contact your Primary Care Provider. Call [facility] ([phone])or report to the closest Emergency Room.Call 911 if necessary.04/27/17 1138 Date [facility] Signature (If Indicated): Date CC: Stefan Hdz MD; Alex Benavidez MD Normal [facility] History and Physical Examon 04-27-2017 History and Physical Exam [facility] [address] [place], [place] [address]Pcqvnmi and Wdiyzchi93/28/17 1847MR#: [id number] Acct: [id number]: LANCE TOMLINSON Rep #: [id number]: 1990 27 From: Lupis Noyola MDPCP: Alex Benavidez MD Status: ADM IN YLocation: MS3 [id number] List(1) Cellulitis of neckStatus: AcuteHistory of Present IllnessDate of Admission: 04/27/17Chief Complaint: Neck pain for one week.Patient is a 27 years old male who presents with persisting neck pain for oneweek, admitted on 04/27/17. He had developed left sided anterolateral neck pain about one weekago. He was seen in ED on 04/22, thought to have left sided cervical lymphadenitis. He wasgiven clindamycin 300 mg po qid for 10 days. However, the pain and swelling worsen since thetime of ED visit, he returned to ED earlier. CT of neck was obtained, thought to have abscessnear SCM. Dr. Hdz, ENT was contacted, Dr. Schaeffer, ED physician had discussed the case. Hefelt that he has phlegmon rather than abscess, medical treatment with IV antibiotics wasrecommended.He denied of any fever, but had some chills and diaphoresis. He has no previous medicalproblems, but had seen in the hospital for syncope in November. He has no history of previoussurgery. He is a smoker and drinks occasionally, but denied of any history of illicit druguse.Past Medical HistoryPast Medical History (Chronic Problems):Chronic ProblemsTobacco use (Chronic)AllergiesNo Known Allergies Allergy (Verified 04/27/17 09:23)Home Medications:Ambulatory OrdersMedication Instructions RecordedClindamycin [Cleocin] 300 mg PO 4X/DAY #80 capsule 04/22/17Surgical History: no surgical historySmoking Status: Current every day smokerAlcohol: Rare, OccasionalDrugs: None- *Family History MaternalHistory Items: Seizures PaternalHistory Items: Diabetes, Heart Disease, HypertensionReview of SystemsComment: ROS: In general: See HPI. He denied of any night sweats, loss of appetite, weightchanges, or profound fatigue. HEENT: Unremarkable. Patient denied of any dizziness, chronicheadache, blurred vision, double vision, dry mouth, or nasal congestion. CV/respiratory: Thereis no exertional shortness of breath, chest pain, palpitation, wheezing, cough, claudication,cold feet, or peripheral edema. GI: Patient denied any abdominal pain, nausea, vomiting,diarrhea, constipation, melena, or hematochezia. : Patient denied any significant urinarysymptoms. Neurology: Unremarkable. There is no history of seizure as an adult. Psychological:Unremarkable. . Endocrine: Unremarkable. Musculoskeletal: See HPI.VTE Information - Inpt OnlyVTE Present on Admission: NoVTE Mechan Device Prophylaxis: NoneVTE Pharm Prophylaxis ordered?: NoReason prophylaxis not ordered:: Procedure Not IndicatedPatient Problems:Active and Suspected ProblemsCellulitis of neck (Acute)Objective:In general, patient is a well-nourished and developed adult.HEENT: Head is atraumatic, and normocephalic. Pupils are equal, round, and reactive to lightand accommodations. Neck is supple. Swelling of left anterolateral neck along SCM. Nolymphadenopathy.Heart: Auscultation is normal with regular rhythm and rate. There is no extra heart sounds, ormurmurs. S1 and S2 are present. Point of maximal impulse is not displaced.Lungs: Lungs are clear to auscultation bilaterally. There is no wheezing, or crackles.Abdomen: Abdominal wall is non-tender, and non-distended. There is no palpable mass ororganomegaly. Normoactive bowel sounds are present.Extremities: There is no cyanosis or clubbing. Peripheral pulses are palpable. There is noedema.Skin: There are no any skin discoloration or lesions.Neurological: CN II - XII are intact. Sensory and motor functions are grossly normal with noobvious deficit. Cerebellar functions are within normal range. Gait was not tested.- Physical ExamVital SignsTemp Pulse Resp BP Pulse Ox96.7 F 62 16 115/61 16:45 04/27/17 16:45 04/27/17 16:45 04/27/17 16:45 04/27/17 16:45Oxygen Delivery Method Room AirWeight: 158 lb 11.725 ozBody Mass Index (BMI) 22.7Intake and Output for Last 24 HoursIntake Total 756Balance 756Assessment/PlanActive and Suspected ProblemsCellulitis of neck (Acute)Patient is a 27 years old male who presents with persisting neck pain for oneweek, admitted on 04/27/17. He had developed left sided anterolateral neck pain about one weekago. He was seen in ED on 04/22, thought to have left sided cervical lymphadenitis. He wasgiven clindamycin 300 mg po qid for 10 days. However, the pain and swelling worsen since thetime of ED visit, he returned to ED earlier. CT of neck was obtained, thought to have abscessnear SCM. Dr. Hdz, ENT was contacted, Dr. Schaeffer, ED physician had discussed the case. Hefelt that he has phlegmon rather than abscess, medical treatment with IV antibiotics wasrecommended.He denied of any fever, but had some chills and diaphoresis. He has no previous medicalproblems, but had seen in the hospital for syncope in November. He has no history of previoussurgery. He is a smoker and drinks occasionally, but denied of any history of illicit druguse.#1 Cellulitis, left neck.Start clindamycin IV 600 mg q6hr.Oral analgesics for pain.Consult ID.ENT consulted from ED.Monitor CBC.Blood culture drawn, but he has been on PO antibiotics and had one dose of ceftriaxone in ED.VTE prophylaxis: early ambulation.GI prophylaxis: Regular consistency meals.Patient is full code.Disposition: home in 2 to 3 days.04/27/17 190 Date Lupis Noyola [facility] Signature (if applicable): Date CC: Alex Benavidez MD; Lupis Noyola M.D. Signed [facility] Soft Tissue Neck WITH Contra ston 04-27-2017 Soft Tissue Neck WITH Contrast [facility]ITAL[facility] [id number] [facility] [place], [place] [address]Dbnl Tissue Neck WITH ContrastMR#: [id number] Acct: [id number]: LANCE TOMLINSON Rep #: [id number]: 1990 M 27 From: Jorge Hussein MDPCP: Alex Benavidez MD Status: REG ERStudy: Soft Tissue Neck WITH Contrast Date of Exam: 04/27/17Exam# [id number] Ordering Dr: Tavon Schaeffer MDSTUDY: CT SOFT TISSUE NECK WITH CONTRASTREASON FOR EXAM: Male, 27 years old. Neck pain and neck swelling.RADIATION DOSAGE (If Supplied By Facility): CTDIvol = ( 17.62 ) mGy, DLP =( 541.19 ) mGycmTECHNIQUE: The patient was scanned in a multi-detector CT scanner. Highresolution transaxial imaging was performed following intravenousadministration of 75 ml of Isovue 300 contrast material. Sagittal andcoronal images were reconstructed.Individualized dose optimization techniques were used for this CT.COMPARISON: None. FINDINGS:Normal bilateral parotid glands.There is diffuse swelling and thickening of the left sternocleidomastoidmuscle from the insertion in the region of the clavicle craniad to theregion of the angle of the jaw. Deep to the left sternocleidomastoidmuscle, there is a 2.8 cm x 1.5 cm x 2.3 cm inhomogeneous hypodensity withrim enhancement along its periphery. This is suggestive of an abscess.The axial lateral internal jugular vein is small as compared to the rightside. There is narrowing with mass effect of the left internal jugularvein. The inflammatory response extends medially to the left paraspinalspace into the region of the left oral pharynx. Small lymph nodes are seenin the left supraclavicular region.Normal bilateral sublingual and submandibular glands and spaces.Normal visualized nasopharynx. Normal retropharyngeal space. Normalperivertebral space.Normal visualized bilateral faucial tonsils. The visualized tongue, tonguebase and oropharynx are normal.The visualized cervical lymph nodes (levels I-) are within normal sizelimits, and maintain normal morphology. There is no demonstrated solid orcystic mass lesion. There is no abnormal contrast enhancement.Normal epiglottis, bilateral vallecula and hypopharynx. The pre-epiglotticand paraglottic adipose spaces are normal. Normal visualized bilateralpiriform sinuses, aryepiglottic folds, vocal cords, and arytenoid-cricoidarticulatio ns. Normal subglottic trachea.Normal bilateral lobes of the thyroid gland. Normal visualized pulmonaryapices.Mucosal thickening of the maxillary sinuses slightly worse on the rightside. Normal visualized cervical spine. ORDER #: [id number] CT/Soft Tissue Neck WITH ContrastIMPRESSION:Diffuse enlargement of the left sternocleidomastoid muscle with findingssuggestive of an abscess deep to the left sternocleidomastoid muscle withsurrounding inflammatory response and compression of the left internaljugular vein. No thrombus is seen within the internal jugular vein.Electronically Signed:Jorge Hussein MD at 10:58 Christiano [phone], Service support , NL: Alex Benavidez MD; Tavon Schaeffer MD Senior Infrastructure Engineer:Signed [facility] Emergency Department Summary on 04-23-2017 Emergency Department Summary [facility]ITALMedical Records [id number] [place], [place] [address]Rlvoighcs Department Blxbgtr13/23/17 1552MR#: [id number] Acct: [id number]: LANCE TOMLINSON Rep #: [id number]: 1990 From: José Antonio Cash MDPCP: Alex Benavidez MD Status: DEP ER- ER Visit SummaryDate of Service: 04/22/17Chief Complaint: Neck painHistory of Present Illness: The patient is a 27 M presenting for evaluation secondary to neckand throat pain. Patient states that approximately a week ago he felt as if he potentiallyslept strange on his neck. He states that since then he has been getting progressivelyworsening left-sided neck pain that is now associated with swelling, tenderness palpation, andpain with range of motion of his head and neck. Patient also states that he does have a mildamount of left-sided throat pain that is worse with swallowing. He does have some subjectivefevers. Denies any nausea vomiting diarrhea or any other upper respiratory symptoms. He hasnever had any similar symptoms in the past. Review of systems otherwise negative.Physical Examination: Vital signs within normal limits and the patient is afebrile.Well-nourished well-developed age-appropriate male no acute distress sitting comfortably in thebed. Head normocephalic. TMs clear bilaterally. No evidence of skin lesions on the face orneck. Neck exam shows swollen and tender left anterior cervical lymph nodes no overlyingerythema. In-depth oropharyngeal exam did not show any evidence of enlargement of thetonsillar pillars, asymmetry, exudate, or posterior fullness and the patient has a normalpatent airway. Remainder physical otherwise unremarkable.Test Results: None indicatedEmergency Department Course and Treatment: Patient presented with pain and swelling in the leftside of his neck. He does not have any evidence of a peritonsillar abscess on physical exam,and it seems that all of his pain and swelling is on the outside of his neck rather thananterior and I believe likely is more associated with a cervical lymphadenitis. He isnontoxic-appearing and I do not believe that he has Lemierre's disease at this point. I do notbelieve that further testing is necessary. Patient will be placed on a course of clindamycinand Naprosyn and encouraged to follow-up with his primary care physician.Disposition: DischargeImpression:1. Left cervical lymphadenitisED Disposition- Plan for ED Patient:Disposition: Home or Assisted LivingChief Complaint: Other, Pain/InjDiagnosis:Lymphadeni tisInstructions: ED Cervical Adenitis Abx TxPrescriptions:Naproxen [Naprosyn] 500 mg PO BID PRN #20 tabletClindamycin [Cleocin] 300 mg PO 4X/DAY #80 capsuleReferrals:Alex Benavidez MD [Primary Care Provider] - 1 WeekWhat to do if you have ProblemsFor any increased pain, shortness of breath, bleeding, nausea or vomiting, chest pain, or anyunexpected problems, contact your Primary Care Provider. Call [facility] ([phone])or report to the closest Emergency Room.Call 911 if necessary.04/23/17 0059 Date José Antonio Cash MDCosigner Signature (If Indicated): Date CC: Alex Benavidez MD [facility] Encounters Encounter Date Encounter Type Care Provider Facility Start: 04-27-2017 End: 05-02-2017 Evaluation and management of inpatient Alex Benavidez Facility:[facility] Start: 04-22-2017 End: 04-22-2017 Emergency department patient visit José Antonio Cash Facility:[facility] Payers Date Payer Category Payer Policy ID Self-pay [id number] Summary Purpose Family History No Family History Records Found Advance Directives No Advanced Directives Records Found Additional Source Comments (unrecognized sect ion and content) No Status Records Found INFORMATION SOURCE (unrecogn ized section and content) DATE CREATED AUTHOR 01/23/2018 [facility] FOR RECORDS PERTAINING TO PATIENTS WHO ARE OR HAVE BEEN ENROLLED IN A CHEMICAL DEPENDENCY/SUBSTANCEABUSE PROGRAM, SOME INFORMATION MAY BE OMITTED. This clinical summary was aggregated from multiple sources. Caution should be exercised in using it in the provision of clinical care. This summary normalizes information from multiple sources, and as a consequence, information in this document may materially change the coding, format and clinical context of patient data. In addition, data may be omitted in some cases. CLINICAL DECISIONS SHOULD BE BASED ON THE PRIMARY CLINICAL RECORDS. [employer] provides no warranty or guarantee of the accuracy or completeness of information in this document.
[2025-02-09 17:38] VITALS: BP 122/82; PULSE 80; RESP 16; TEMP 37.2; O2SAT 100
== END 2025-02-09 17:40 | disposition home or self-care (01) ==
PROVIDERS: Emergency Provider Emergency Medicine; PCP Family Medicine; Visit Provider Emergency Medicine
DX: S39.012A Strain of muscle, fascia and tendon of lower back, initial encounter (principal); X50.0XXA Overexertion from strenuous movement or load, initial encounter; Y99.0 Civilian activity done for income or pay; F17.200 Nicotine dependence, unspecified, uncomplicated
CPT/HCPCS: 99282